=== PATIENT | female | born 1955 | race Caucasian/White ===

== ENCOUNTER → 2023-02-04 | Outpatient (CLI) | payer MEDICARE ==
[~2023-02-04] MED LIST: GADOTERATE MEGLUMINE 10 MMOL/20 ML VIAL IV ONE
== END | disposition home or self-care (01) ==
LOC: RAH 08:50
PROVIDERS: ATTEND Internal Medicine Hepatology
DX: N28.1 Cyst of kidney, acquired (principal); K74.60 Unspecified cirrhosis of liver; R16.1 Splenomegaly, not elsewhere classified
CPT/HCPCS: 74183; A9575

== ENCOUNTER → 2023-05-14 | Outpatient (CLI) | payer MEDICARE ==
[~2023-05-14] MED LIST changes: +BUME2TAB5 PO; -GADOTERATE MEGLUMINE 10 MMOL/20 ML VIAL IV ONE; +LACT10SO5 PO; +RIFA550T PO; +SPIR100T PO; +URSO500T10 PO
== END | disposition home or self-care (01) ==
LOC: RAH 09:25
PROVIDERS: ATTEND Family Medicine Sports Medicine
DX: Z12.31 Encounter for screening mammogram for malignant neoplasm of breast (principal); R92.323 Mammographic fibroglandular density, bilateral breasts
CPT/HCPCS: 77067